=== PATIENT | female | born 1995 | race Caucasian/White ===

== ENCOUNTER 2016-06-16 09:59 | Emergency (ER) | payer OTHER ==
[~2016-06-16] VITALS: Ht 172.7 cm; Wt 90.0 kg
[~2016-06-16 09:59] MED LIST: AMOXICILLIN 8751 TAB PO; Birth Control PO; PERCOCET 325 MG1 TA2 PO
[2016-06-16 10:04] VITALS: BP 158/104
[2016-06-16] MEDS ORDERED: ACNE (10:08)
[2016-06-16] MEDS ORDERED: ALDACTONE 100M100 MG PO (10:08)
[2016-06-16] MEDS ORDERED: DEPO-PROVER150 MG/M1 IM (10:09)
[2016-06-16 11:39] LABS: PH 5 (5-8); SQUAMOUS EPITHELIAL 0-2 /hpf; URINE APPEARANCE Hazy; URINE BACTERIA Rare /hpf; URINE BILIRUBIN Negative (NEGATIVE); URINE BLOOD Negative (NEGATIVE); URINE COLOR Yellow; URINE GLUCOSE Negative (NEGATIVE); URINE KETONE Trace (NEGATIVE); URINE RBC 0-2 /hpf; URINE UROBILINOGEN Negative (NEGATIVE)
[2016-06-16] MEDS ORDERED: NORCO 325 MG-51 TAB PO (12:53)
[2016-06-16 13:02] VITALS: PULSE 94; TEMP 98.3
== END 2016-06-16 13:02 | disposition home or self-care (01) ==
LOC: COL.ER 09:59
PROVIDERS: Nurse Practitioner
DX: S62.643A Nondisplaced fracture of proximal phalanx of left middle finger, initial encounter for closed fracture (principal); V43.52XA Car driver injured in collision with other type car in traffic accident, initial encounter; Y92.414 Local residential or business street as the place of occurrence of the external cause; R10.13 Epigastric pain; S30.811A Abrasion of abdominal wall, initial encounter; T22.111A Burn of first degree of right forearm, initial encounter
CPT/HCPCS: Q9967

== ENCOUNTER 2016-09-23 12:30 | Outpatient (RCR) | payer OTHER, BC ==
[~2016-09-23 12:30] MED LIST changes: +ACNE; +ALDACTONE 100M100 MG PO; +DEPO-PROVER150 MG/M1 IM; +NORCO 325 MG-51 TAB PO
== END 2016-09-29 15:47 | disposition home or self-care (01) ==
LOC: WSOT 12:30
DX: S62.613D Displaced fracture of proximal phalanx of left middle finger, subsequent encounter for fracture with routine healing (principal); Z98.890 Other specified postprocedural states